=== PATIENT | female | born 1995 | race Caucasian/White ===

== ENCOUNTER 2018-08-10 08:19 | Outpatient (CLI) | payer BC ==
[2018-08-10 09:03] LABS: MICROSCOPIC NOT IND
== END 2018-08-10 10:55 | disposition home or self-care (01) ==
LOC: LDOP 08:19
PROVIDERS: ATTEND Obstetrics & Gynecology Maternal & Fetal Medicine
DX: O26.893 Other specified pregnancy related conditions, third trimester (principal); Z3A.27 27 weeks gestation of pregnancy; R10.9 Unspecified abdominal pain
CPT/HCPCS: 36415; 59025; 81003; 82731; 87086; 99201; G0463

== ENCOUNTER 2018-11-01 00:31 | Outpatient (CLI) | payer BC ==
[~2018-11-01] VITALS: Ht 162.6 cm; Wt 75.0 kg
[2018-11-01 00:35] VITALS: BP 111/58
== END 2018-11-01 02:00 | disposition home or self-care (01) ==
LOC: LDOP 00:31
PROVIDERS: ATTEND Obstetrics & Gynecology Maternal & Fetal Medicine
DX: O62.9 Abnormality of forces of labor, unspecified (principal); Z3A.38 38 weeks gestation of pregnancy
CPT/HCPCS: 59025; 99211; G0463